=== PATIENT | female | born 1975 | race Caucasian/White ===

== ENCOUNTER → 2016-08-13 | Outpatient (CLI) | payer BC ==
[~2016-08-13] MED LIST: TOPAMAX 100 MG100 MG PO; VITAMIN B-12500 MCG PO
== END ==
LOC: CAT 16:39
DX: R06.02 Shortness of breath (principal)

== ENCOUNTER → 2017-10-25 | Outpatient (CLI) | payer BC | LOC: RAD 11:21 | DX: R07.89 Other chest pain (principal); R06.02 Shortness of breath ==

== ENCOUNTER 2018-02-19 22:19 | Emergency (ER) | payer BC ==
[~2018-02-19] VITALS: Ht 162.6 cm; Wt 86.2 kg
[2018-02-19 23:46] LABS: CALCIUM 8.3 mg/dL (8.5-10.1); POTASSIUM 3.8 mmol/L (3.5-5.1)
[2018-02-20 00:19] LABS: BASOPHILS 0.8 % (0.0-2.0); EOSINOPHILS 1.7 % (0.0-3.0); HEMATOCRIT 36.2 % (37.0-47.0); HEMOGLOBIN 12.5 gm/dL (12.0-15.0); LYMPHOCYTES 28.3 % (24.0-44.0); MCH 28.8 pg (26.0-34.0); MCHC 34.5 g/dL (28.0-37.0); MCV 83.6 fL (80.0-100.0); MONOCYTES 6.9 % (1.0-8.0); PLATELET COUNT 216 thou/uL (150-400); POLYS 62.3 % (36.0-66.0); RBC 4.33 mil/uL (4.20-5.00); RDW 14.2 % (10.5-14.5)
[2018-02-20] MEDS ORDERED: SYNTHROID137 MC1 PO (02:34)
[2018-02-20 05:34] VITALS: BP 115/73
== END 2018-02-20 05:35 | disposition home or self-care (01) ==
LOC: ER 22:19
PROVIDERS: Emergency Medicine
DX: R60.0 Localized edema (principal); M79.10 Myalgia, unspecified site; G89.18 Other acute postprocedural pain; Z90.49 Acquired absence of other specified parts of digestive tract; Z88.5 Allergy status to narcotic agent

== ENCOUNTER → 2019-02-02 | Outpatient (CLI) | payer BC ==
[~2019-02-02] MED LIST changes: +SYNTHROID137 MC1 PO
== END ==
LOC: RAD 12:53
DX: R06.00 Dyspnea, unspecified (principal); Z88.8 Allergy status to other drugs, medicaments and biological substances; Z90.49 Acquired absence of other specified parts of digestive tract

== ENCOUNTER → 2019-05-19 | Outpatient (CLI) | payer BC | LOC: ULTRA 16:28 | DX: M79.604 Pain in right leg (principal); Z86.718 Personal history of other venous thrombosis and embolism ==

== ENCOUNTER → 2020-02-22 | Outpatient (CLI) | payer BC | LOC: RAD 11:19 | PROVIDERS: ATTEND Internal Medicine Pulmonary Disease | DX: R06.00 Dyspnea, unspecified (principal) ==